=== PATIENT | male | born 1965 | race Caucasian/White ===

== ENCOUNTER → 2024-09-01 11:03 | Outpatient (REF) | payer OTHER, SELFPAY | LOC: HWRAD 11:03 | PROVIDERS: ATTENDING PHYSICIAN Family Medicine; FAMILY PHYSICIAN Family Medicine | DX: G62.9 Polyneuropathy, unspecified (principal) | CPT/HCPCS: 93971 ==

== ENCOUNTER → 2025-06-05 08:59 | Outpatient (REF) | payer OTHER, SELFPAY | LOC: RST 08:59 | PROVIDERS: ATTENDING PHYSICIAN Family Medicine | DX: K21.00 Gastro-esophageal reflux disease with esophagitis, without bleeding (principal) | CPT/HCPCS: 74230; 92611 ==